=== PATIENT | male | born 1975 | race Caucasian/White ===

== ENCOUNTER 2019-03-13 18:05 | Emergency (ER) | payer BC, OTHER ==
--- NOTE | 2019-03-13 18:22 | UC ---
Cardiac HPI - HPI Summary HPI Summary: 43 yo man with hx of hypertension and depression, with a 4 day hx of pain in the left chest. On the night prior to onset he had about 6 drinks of vodka and gatorade, and felt fine. In the morning, he drank gatorade, followed by a cappucino, with onset of epigastric discomfort and fullness to follow. This has plagued him off and on since then, without sweating, vomiting, diaphoresis or shortness of breath. Today he began to have more diffuse chest pain, aching off and on in the left as well as the right chest. He grew increasingly concerned about his heart and came for evaluation. Pain relieved with pepto bismol. Has been treating htn for 1 year, positive FH of heart disease in maternal uncle , smoking with approx 8-9 pack year history, and high alcohol intake. Admits to having anxiety and high resting heart rate. Denies present or past use of stimulants or cocaine. - History of Current Complaint Stated Complaint: CHEST PAIN, HIGH BP Time Seen by Provider: 03/13/19 18:07 Hx Obtained From: Patient Onset/Duration: Sudden Onset, Lasting Days - 4 Timing: Intermittent Episodes Lasting: Initial Severity: Moderate Current Severity: Moderate Chest Pain Location: Diffuse, Left Anterior, Left Lateral Character: Fast - aware of high heart rate Aggravating Factor(s): Nothing Alleviating Factor(s): Rest Associated Signs & Symptoms: Positive: Chest Pain, Anxiety, Abdominal Pain - epigastric pain resolved.. Negative: Vision Changes, Recent Stress, Headaches, Numbness, Tingling, Weakness, Dizziness, SOB, Swelling, Syncope, Fever, Diaphoresis, Nausea/Vomiting, Palpitations, Cough, Hemoptysis, Back Pain - Risk Factors Pulmonary Embolism Risk Factors: Smoking Cardiac Risk Factors: Hypertension, Smoking, Family History Atrial Fibrillation: Hypertension TAD Risk Factors: Negative, Hypertension AMI/ACS Risk Factors: Obesity, Family History, Hypertension, Smoking - Allergy/Home Medications Allergies/Adverse Reactions: Allergies Allergy/AdvReac Type Severity Reaction Status Date / Time No Known Allergies Allergy Verified 03/13/19 18:12 Home Medications: Home Medications Aspirin [Aspirin Childrens 81 MG] 81 mg PO DAILY 03/13/19 [History Confirmed ] Bismuth Subsalicylate [Pepto-Bismol] PRN 03/13/19 [History] Losartan TAB* [Cozaar TAB*] 50 mg PO DAILY 03/13/19 [History Confirmed 03/13/19] PMH/Surg Hx/FS Hx/Imm Hx Previously Healthy: Yes Cardiovascular History: Hypertension GI/ History: Gastroesophageal Reflux - Surgical History Surgical History: Yes Surgery Procedure, Year, and Place: VASECTOMY - Social History Substance Use Type: None Review of Systems All Other Systems Reviewed And Are Negative: Yes Constitutional: Positive: Negative Skin: Positive: Negative Eyes: Positive: Negative ENT: Positive: Negative Respiratory: Positive: Negative Cardiovascular: Positive: Chest Pain Gastrointestinal: Positive: Abdominal Pain - epigastric pain resolved. Genitourinary: Positive: Negative Motor: Positive: Negative Neurovascular: Positive: Negative Musculoskeletal: Positive: Negative Neurological: Positive: Negative Psychological: Positive: Negative Is Patient Immunocompromised?: No Physical Exam Triage Information Reviewed: Yes Appearance: Well-Appearing, Pain Distress - mild, Other: - anxious Eye Exam: Other - SHIRIN, no arterial nicking. Eyes: Positive: Conjunctiva Clear ENT: Positive: Pharynx normal Neck: Positive: Supple, Nontender, No Lymphadenopathy Respiratory: Positive: Lungs clear, Normal breath sounds Cardiovascular: Positive: RRR, No Murmur Abdomen Description: Positive: Nontender, No Organomegaly, Soft Bowel Sounds: Positive: Present Musculoskeletal Exam: Normal Neurological Exam: Normal Psychological Exam: Normal Skin Exam: Normal Diagnostics - EKG Cardiac Rate: NL Cardiac Rhythm: Sinus: Normal Ectopy: None ST Segment: Normal - T wave changes in inferior leads. - Assessment/Plan Course Of Treatment: Discussed high risk factors for heart disease with EKG changes without a previous for comparison. Reviewed risk factors which he needs to modify (smoking, alcohol). He opts to go to the ER for rule out of ACS. - Differential Diagnoses - Chest Pain Differential Diagnosis/HQI/PQRI: Acute AL, ACS, Angina, GI Disease - Clinical Impression Provider Diagnosis: Chest pain, Hypertension Discharge ED - Sign-Out/Discharge Documenting (check all that apply): Patient Departure All imaging exams completed and their final reports reviewed: No Studies - Discharge Plan Condition: Stable Disposition: [facility] Patient Education Materials: Chest Pain (ED) Referrals: Kaiser Shi NP [Primary Care Provider] - Additional Instructions: Please go directly to the emergency room for evaluation of chest pain due to your risk factors for heart disease. - Billing Disposition and Condition Condition: STABLE Disposition: [facility]
[2019-03-13 18:26] VITALS: BP 148/90
== END 2019-03-13 18:54 | disposition short-term general hospital (02) ==
LOC: UCCORT 18:05
DX: R07.9 Chest pain, unspecified (principal); I10 Essential (primary) hypertension; Z79.82 Long term (current) use of aspirin; Z79.899 Other long term (current) drug therapy
CPT/HCPCS: 93005; 99202; G0463